=== PATIENT | female | born 1945 | race Caucasian/White ===

== ENCOUNTER 2023-01-16 13:10 | Emergency (ER) | payer OTHER ==
[~2023-01-16] VITALS: Ht 182.9 cm; Wt 124.7 kg
[2023-01-16 13:27] VITALS: BP_SYST 145; PULSE 73; RESP 19; TEMP 97.8; O2SAT 97
[2023-01-16 14:15] LABS: BASOPHILS % (AUTO) 0.3 % (0.0-2.0); EOSINOPHILS # (AUTO) 0.2 K/uL (0.0-0.4); EOSINOPHILS % (AUTO) 2.7 % (0.0-4.0); HEMATOCRIT 32.7 % (36-48); LYMPHOCYTES # (AUTO) 1.2 K/uL (1.0-5.5); MEAN CORPUSCULAR HEMOGLOBIN 27 pg (27-31); MEAN CORPUSCULAR HGB CONC 31 % (32-36); MEAN CORPUSCULAR VOLUME 89 fL (79.0-98.0); MONOCYTES # (AUTO) 0.6 K/uL (0.0-1.0); MONOCYTES % (AUTO) 9.2 % (1.7-9.3); NEUTROPHILS # (AUTO) 4.6 K/uL (1.8-7.7); NEUTROPHILS % (AUTO) 69.8 % (40.0-70.0); PLATELET COUNT (AUTO) 346 K/uL (130-430); RED BLOOD CELL COUNT(AUTO) 3.68 MIL/uL (4.2-6.2); RED CELL DISTRIBUTION WIDTH 16.7 % (9.0-15.0); WHITE BLOOD COUNT (AUTO) 6.6 K/uL (4.8-10.8)
[2023-01-16 14:21] LABS: ANION GAP 7 (5-15); CALCIUM 8.4 mg/dL (8.4-11.0); CHLORIDE 104 mmol/L (98-107); CREATININE 0.92 mg/dL (0.55-1.30); GLUCOSE 96 mg/dL (74-106); UREA NITROGEN, BLOOD 17 mg/dL (8-21)
[2023-01-16 14:26] LABS: ALANINE AMINOTRANSFERASE 33 U/L (12-78); ALBUMIN 2.6 g/dL (3.4-4.8); ASPARTATE AMINOTRANSFERASE 31 U/L (10-37); TOTAL BILIRUBIN 0.6 mg/dL (0.0-1.0)
[2023-01-16 14:28] LABS: PROTHROMBIN TIME 10.4 SECS (9.5-12.5)
[2023-01-16] MEDS ORDERED: HYDROcodone/ACETAMIN 10-325 MG TAB PO ONE ×2 (16:45→21:15)
[2023-01-17 05:35] VITALS: TEMP 97.7
[2023-01-17] MEDS ORDERED: HYDROcodone/ACETAMIN 10-325 MG TAB PO ONE (08:00)
[2023-01-17 16:20] VITALS: BP_SYST 146; PULSE 74; RESP 18; O2SAT 98
== END 2023-01-17 16:10 | disposition short-term general hospital (02) ==
LOC: SED 13:10
DX: S82.842C Displaced bimalleolar fracture of left lower leg, initial encounter for open fracture type IIIA, IIIB, or IIIC (principal); M79.672 Pain in left foot; Z79.899 Other long term (current) drug therapy; Z20.822 Contact with and (suspected) exposure to COVID-19; X58.XXXA Exposure to other specified factors, initial encounter; Y93.89 Activity, other specified; Y92.89 Other specified places as the place of occurrence of the external cause; Y99.8 Other external cause status
CPT/HCPCS: 99285; 73700; 87426; 80053; 85025; 85610; 85730; 87040; 36415; 73590; 73610; 73630; 76376; 83605; J7030

== ENCOUNTER 2023-05-11 16:58 | Emergency (ER) | payer OTHER ==
[~2023-05-11] VITALS: Ht 175.3 cm; Wt 120.7 kg
[2023-05-11 17:20] VITALS: BP_SYST 113; PULSE 75; RESP 19; TEMP 98; O2SAT 95
[2023-05-11] MEDS ORDERED: TRAM50TA2 PO (18:26)
[2023-05-11] MEDS ORDERED: ATOR10TA68 PO (18:26)
[2023-05-11] MEDS ORDERED: FAMO20TA8 PO (18:26)
[2023-05-11] MEDS ORDERED: GABA300T25 (18:26)
[2023-05-11] MEDS ORDERED: POTA-178 PO (18:26)
[2023-05-11] MEDS ORDERED: BUPR300T46 PO (18:26)
[2023-05-11] MEDS ORDERED: NACL 0.9% 1,000 ML IV ONE (18:30)
[2023-05-11] MEDS ORDERED: IPRATROPIUM BROM 0.5 MG/2.5 ML VIAL.NEB (ATROVENT) INH ONE (19:15)
[2023-05-11] MEDS ORDERED: AZITHROMYCIN 500 MG in NS 250 ML IV ONE (19:15)
[2023-05-11] MEDS ORDERED: cefTRIAXone 1 GM IVPB PREMIX 50 ML IV ONE (19:15)
[2023-05-11] MEDS ORDERED: ALBUTEROL SULFATE 0.083% 2.5 MG/3 ML VIAL.NEB INH ONE (19:15)
[2023-05-11 19:30] LABS: ANION GAP 9 (5-15); CALCIUM 8.9 mg/dL (8.4-11.0); CARBON DIOXIDE 27 mmol/L (23-29); CHLORIDE 100 mmol/L (98-107); CREATININE 0.92 mg/dL (0.55-1.30); GLUCOSE 100 mg/dL (74-106); POTASSIUM 3.8 mmol/L (3.5-5.1); SODIUM SERUM 136 mmol/L (136-145); UREA NITROGEN, BLOOD 12 mg/dL (8-21)
[2023-05-11 19:37] LABS: ALANINE AMINOTRANSFERASE 6 U/L (12-78); ALBUMIN 2.3 g/dL (3.4-4.8); ASPARTATE AMINOTRANSFERASE 13 U/L (10-37); TOTAL BILIRUBIN 0.2 mg/dL (0.0-1.0); TOTAL PROTEIN, SERUM 6.9 g/dL (6.4-8.3)
[2023-05-11 19:43] LABS: BASOPHILS # (AUTO) 0.1 K/uL (0.0-0.2); EOSINOPHILS # (AUTO) 0.4 K/uL (0.0-0.4); HEMOGLOBIN 9.9 g/dL (12.0-16.0); LYMPHOCYTES # (AUTO) 1.1 K/uL (1.0-5.5); MONOCYTES # (AUTO) 0.7 K/uL (0.0-1.0)
[2023-05-11 19:58] LABS: PROTHROMBIN TIME 10.8 SECS (9.5-12.5)
[2023-05-11 19:59] LABS: EOSINOPHILS % (AUTO) 6.1 % (0.0-4.0); LYMPHOCYTES % (AUTO) 17.4 % (20.5-51.5); MEAN CORPUSCULAR HEMOGLOBIN 23 pg (27-31); MEAN CORPUSCULAR HGB CONC 30 % (32-36); MEAN CORPUSCULAR VOLUME 76 fL (79.0-98.0); MONOCYTES % (AUTO) 10.5 % (1.7-9.3); NEUTROPHILS # (AUTO) 4.1 K/uL (1.8-7.7); PLATELET COUNT (AUTO) 386 K/uL (130-430); RED BLOOD CELL COUNT(AUTO) 4.33 MIL/uL (4.2-6.2); RED CELL DISTRIBUTION WIDTH 19.9 % (9.0-15.0); WHITE BLOOD COUNT (AUTO) 6.3 K/uL (4.8-10.8)
[2023-05-11 20:07] LABS: COVID19 ANTIGEN SOFIA FIA NEGATIVE (NEGATIVE)
[2023-05-11 20:13] LABS: INFLUENZA TYPE A Negative (NEGATIVE); INFLUENZA TYPE B NEGATIVE (NEGATIVE)
[2023-05-11] MEDS ORDERED: iohexoL 350 mgI/mL, 100 ML INFUS..BTL IV ONE (21:35)
[2023-05-11 21:53] LABS: BLOOD GAS PCO2 34.1 mmHg (35.0-45.0); BLOOD GAS PH 7.474 (7.350-7.450); BLOOD GAS PO2 62.5 mmHg (75.0-100.0)
[2023-05-11 21:54] LABS: ABG O2 SAT% ESTIMATE 93.5 % (94.0-100.0); ALLEN'S TEST YES (P); BLOOD GAS BASE EXCESS 1.5 mmol/L (-3.0-3.0); BLOOD GAS HCO3 24.5 mmol/L (21.0-27.0)
[2023-05-11] MEDS ORDERED: AZITHROMYCIN 500 MG/VIAL (ZITHROMAX) IV ONE (23:47)
[2023-05-12] MEDS ORDERED: ZIT250 PO (01:36)
[2023-05-12] MEDS ORDERED: PHEDM120 PO (01:36)
[2023-05-12 08:34] VITALS: BP_SYST 149; PULSE 86; RESP 20; TEMP 98; O2SAT 96
== END 2023-05-12 08:38 | disposition home or self-care (01) ==
LOC: SED 16:58
DX: R07.9 Chest pain, unspecified (principal); R09.02 Hypoxemia; R06.02 Shortness of breath; R05.9 Cough, unspecified; K21.9 Gastro-esophageal reflux disease without esophagitis; I10 Essential (primary) hypertension; Z79.899 Other long term (current) drug therapy; Z20.822 Contact with and (suspected) exposure to COVID-19
CPT/HCPCS: 99285; 96365; 71275; 71045; 96367; 96361; 87426; 80053; 83880; 85025; 85610; 85730; 87040; 87086; 84484; 36415; 36600; 82803; 83605; 87804 ×2; 76376; Q9967; J0456; J0696; J7030